=== PATIENT | male | born 1970 | race Caucasian/White ===

== ENCOUNTER 2025-01-28 09:04 | Outpatient (REF) | payer OTHER, SELFPAY ==
[2025-01-28 09:18] LABS: Basophils Percent Auto 0.2 % (0.0-3.0); Eosinophils Percent Auto 0.2 % (0.0-7.0); Hematocrit 26.8 % (37.0-53.0); Hemoglobin* 8.7 gm/dL (13.5-17.5); Immature Granulocytes Pct Auto 9.1 %; Lymphocytes Percent Auto 2.9 % (20-44); Mean Corpuscular HGB Conc 33 gm/dL (32-36); Mean Corpuscular Hemoglobin 29 pg (26-34); Mean Corpuscular Volume 89 fL (80-100); Monocytes Percent Auto 10.9 % (0.0-11.0); Neutrophils Percent Auto 76.7 % (42.0-72.0); Platelet Count* 565 K/uL (140-440); RDW Coefficient of Variation % 19.6 % (11.5-15.5); White Blood Count* 20.55 K/uL (4.50-11.00)
[2025-01-28 09:20] LABS: Slide Review Reflex No
[2025-01-28 09:41] LABS: Albumin* 2.5 g/dL (3.3-5.0); Chloride* 95 mmol/L (96-114); Potassium* 4.5 mmol/L (3.6-5.1); Sodium* 126 mmol/L (135-149)
[2025-01-28 09:44] LABS: Alanine Aminotransferase* 27 U/L (4-50); Alkaline Phosphatase* 1071 U/L (40-150); Anion Gap 5 mEq/L (7-15); Aspartate Amino Transferase* 35 U/L (12-35); Bilirubin Total* 0.5 mg/dL (0.1-1.5); Blood Urea Nitrogen* 18 mg/dL (7-30); Calcium* 7.8 mg/dL (8.4-10.6); Carbon Dioxide* 26 mmol/L (20-32); Creatinine* 0.4 mg/dL (0.5-1.5); Estimated Glomerular Filt Rate 130 ml/min; Glucose* 102 mg/dL (60-115)
== END 2025-01-28 09:05 | disposition home or self-care (01) ==
LOC: NPINS 09:04
PROVIDERS: Visit Provider Internal Medicine Hematology & Oncology
DX: C15.5 Malignant neoplasm of lower third of esophagus (principal)
CPT/HCPCS: 80053; 85025

== ENCOUNTER 2025-03-16 08:30 | Outpatient (RCR) | payer OTHER, SELFPAY ==
[2024-11-18] MEDS: FAMOTIDINE 10 MG/ML inj 20 MG IVP (09:23)
[2024-11-18] MEDS: 0.9 % SODIUM CHLORIDE 500 ML 500 ML IV (09:23)
[2024-11-18 09:51] VITALS: BP 100/66; PULSE 53; RESP 16; TEMP 36.2; O2SAT 98
[2024-11-18 10:15] VITALS: BP 106/72; PULSE 54; RESP 16; TEMP 36.6; O2SAT 98
[2024-11-18 10:50] VITALS: BP 105/65; PULSE 53; RESP 16; TEMP 36.3; O2SAT 97
[2024-11-18 11:20] VITALS: BP 114/72; PULSE 61; RESP 16; TEMP 36.8; O2SAT 100
[2024-11-18 11:51] VITALS: BP 127/85; PULSE 57; RESP 18; TEMP 36.7; O2SAT 98
[2024-11-18 12:55] VITALS: BP 129/80; PULSE 56; RESP 16; TEMP 36.5; O2SAT 98
[2024-11-18] MEDS: HEPARIN 500 UNIT/5 ML SYRINGE IVF (12:56)
[2024-11-18] MEDS: SODIUM CHLORIDE 0.9 % (FLUSH) 10 ML SYRINGE IVF (12:57)
[2024-12-02 11:50] VITALS: BP 105/64; PULSE 58; RESP 18; TEMP 36.3; O2SAT 99
[2024-12-02 12:20] VITALS: BP 109/66; PULSE 58; RESP 16; TEMP 36.3; O2SAT 99
[2024-12-02 12:50] VITALS: BP 126/65; PULSE 66; RESP 16; TEMP 36.3; O2SAT 99
[2024-12-02 13:13] VITALS: BP 110/68; PULSE 66; RESP 18; TEMP 36.5; O2SAT 98
[2024-12-02 14:12] VITALS: BP 111/69; PULSE 63; RESP 16; TEMP 36.7; O2SAT 99
[2024-12-02 14:50] VITALS: BP 121/74; PULSE 62; RESP 18; TEMP 36.6; O2SAT 99
[2024-12-17] VITALS (7 sets, daily range): BP systolic 109–134; BP diastolic 71–81; PULSE 59–69; RESP 14–18; TEMP 36.2–36.8; O2SAT 97–100
[2024-12-17] MEDS: SODIUM CHLORIDE 0.9 % (FLUSH) 10 ML SYRINGE IVF (09:05)
[2024-12-17] MEDS: 0.9 % SODIUM CHLORIDE 500 ML 250 ML IV (13:15)
[2024-12-17] MEDS: HEPARIN 500 UNIT/5 ML SYRINGE IVF (13:15)
[2025-01-14] VITALS (7 sets, daily range): BP systolic 114–122; BP diastolic 59–75; PULSE 66–82; RESP 16–20; TEMP 35.9–36.8; O2SAT 98–100
[2025-01-19] VITALS (8 sets, daily range): BP systolic 100–133; BP diastolic 64–94; PULSE 76–86; RESP 16–18; TEMP 36.3–37.2; O2SAT 97–100
--- NOTE | 2025-01-25 13:04 | ONC.NURNOTE ---
Dx: Esophageal cancer
[2025-01-28] VITALS (7 sets, daily range): BP systolic 105–118; BP diastolic 71–77; PULSE 72–79; RESP 16–20; TEMP 36.2–36.7; O2SAT 99–100
[2025-01-28] MEDS: SODIUM CHLORIDE 0.9 % (FLUSH) 10 ML SYRINGE IVF ×2 (08:45→12:40)
[2025-01-28] MEDS: HEPARIN 500 UNIT/5 ML SYRINGE IVF (12:40)
[2025-02-17] VITALS (12 sets, daily range): BP systolic 98–130; BP diastolic 60–81; PULSE 72–108; RESP 15–18; TEMP 36.1–36.7; O2SAT 98–100
[2025-03-01] VITALS (7 sets, daily range): BP systolic 89–98; BP diastolic 57–63; PULSE 81–106; RESP 14–16; TEMP 36.2–36.5; O2SAT 93–98
[2025-03-16] VITALS (10 sets, daily range): BP systolic 98–122; BP diastolic 64–83; PULSE 87–117; RESP 16–20; TEMP 36.4–37.2; O2SAT 98–100
== END 2025-05-17 23:59 | disposition home or self-care (01) ==
LOC: CCIC 08:30
PROVIDERS: Visit Provider Clinical Nurse Specialist
DX: C15.5 Malignant neoplasm of lower third of esophagus (principal)
CPT/HCPCS: 36415; 36430; 36591; 86850; 86900; 86901; 86922; 96374; 96375; J1100; J1308; J1642; J7030; P9016; S0028